=== PATIENT | female | born 1965 | race Caucasian/White ===

== ENCOUNTER 2023-04-30 10:38 | Emergency (ER) | payer OTHER ==
[~2023-04-30] VITALS: Ht 165.1 cm; Wt 99.8 kg
== END 2023-04-30 17:13 | disposition home or self-care (01) ==
LOC: ER 10:38
DX: S82.61XB Displaced fracture of lateral malleolus of right fibula, initial encounter for open fracture type I or II (principal); W18.39XA Other fall on same level, initial encounter; Y93.9 Activity, unspecified; Y92.018 Other place in single-family (private) house as the place of occurrence of the external cause; Y99.9 Unspecified external cause status